=== PATIENT | female | born 1990 | race African-American/Black ===

== ENCOUNTER 2023-04-03 05:05 | Emergency (ER) | payer OTHER ==
[~2023-04-03] VITALS: Ht 170.2 cm; Wt 68.0 kg
[2023-04-03] MEDS ORDERED: ONDANSETRON HCL/PF 4 MG/2 ML VIAL ONE (07:07)
[2023-04-03] MEDS ORDERED: FAMOTIDINE/PF INJ 20 MG/2 ML VIAL IV ONE (07:07)
[2023-04-03] MEDS: FAMOTIDINE/PF INJ 20 MG/2 ML VIAL IV ONE (07:16)
[2023-04-03] MEDS: IV NS 0.9% 1,000 ML BAG IV ONE (07:16)
[2023-04-03] MEDS: ONDANSETRON HCL/PF 4 MG/2 ML VIAL IVP ONE (07:17)
[2023-04-03 07:36] LABS: BASOPHILS % (AUTO) 0.2 % (0.0-2.0); EOSINOPHILS # (AUTO) 0.1 K/uL (0.0-0.7); EOSINOPHILS % (AUTO) 0.6 % (0.0-6.0); HEMATOCRIT 44 % (33-45); HEMOGLOBIN 14.6 g/dL (11.5-14.8); LYMPHOCYTES # (AUTO) 0.6 K/uL (0.8-4.8); LYMPHOCYTES % (AUTO) 5.1 % (20.0-44.0); MEAN CORPUSCULAR HEMOGLOBIN 31 PG (26.0-33.0); MEAN CORPUSCULAR HGB CONC 33 g/dl (31.0-36.0); MEAN CORPUSCULAR VOLUME 94 fL (82-100); MONOCYTES # (AUTO) 0.4 K/uL (0.1-1.30); MONOCYTES % (AUTO) 3.4 % (2.0-12.0); NEUTROPHILS # (AUTO) 10.9 K/uL (1.8-8.9); NEUTROPHILS % (AUTO) 90.7 % (43.0-81.0); PLATELET COUNT (AUTO) 274 K/uL (150-450); RED BLOOD CELL COUNT(AUTO) 4.67 MIL/uL (4.0-5.2); RED CELL DISTRIBUTION WIDTH 13.8 % (11.5-15.0)
[2023-04-03 07:46] LABS: APPEARANCE,URINE SLIGHTLY CLOUDY (CLEAR); BILIRUBIN,URINE NEGATIVE (NEGATIVE); BLOOD, URINE NEGATIVE Ery/uL (NEGATIVE); COLOR,URINE YELLOW (YELLOW); KETONES,URINE TRACE mg/dL (NEGATIVE); LEUKOCYTE ESTERASE ,URINE NEGATIVE (NEGATIVE); NITRITE, URINE NEGATIVE (NEGATIVE); PH,URINE 5.5 (5.0-8.0); PROTEIN,URINE TRACE mg/dl (NEGATIVE); UGLUCOSE NEGATIVE (NEGATIVE); UROBILINOGEN,URINE 0.2 EU/dL (0.2)
[2023-04-03 07:47] LABS: ADD URINE CULTURE NO; BACTERIA,URINE Rare /HPF (None Seen); PREGNANCY TEST URINE QUAL NEGATIVE (NEGATIVE); RBC,URINE 0-2 /HPF (0-2); SQUAMOUS EPITHELIAL CELL,UR Few /HPF (None Seen); WBC,URINE 0-2 /HPF (0-3)
[2023-04-03 07:50] LABS: CALCIUM, SERUM 8.7 mg/dL (8.5-10.1); POTASSIUM 4.4 mmol/L (3.5-5.1)
[2023-04-03 08:05] LABS: ALBUMIN 3.8 g/dL (3.4-5.0); BILIRUBIN,DIRECT 0.1 mg/dL (0.0-0.2); BILIRUBIN,TOTAL 0.5 mg/dL (0.2-1.0)
[2023-04-03] MEDS ORDERED: ONDA4TAB5 PO (08:26)
[2023-04-03 09:19] VITALS: BP 120/70; TEMP 98; O2SAT 98
== END 2023-04-03 09:20 | disposition home or self-care (01) ==
LOC: ER 05:08
DX: R10.33 Periumbilical pain (principal); R11.10 Vomiting, unspecified
CPT/HCPCS: 99284; 96374; 96361; 96375; 85025; 80048; 83690; 80076; 84703; 81001; 36415; 80320; J3490; J2405; J7030; G0480